=== PATIENT | male | born 1950 | race Caucasian/White ===

== ENCOUNTER 2022-06-24 10:15 | Outpatient (REF) | payer BC, SELFPAY ==
--- NOTE | ~2022-06-24 | MR_ITS ---
EXAMINATION: MR BRAIN WITHOUT AND WITH CONTRAST CLINICAL INFORMATION: Right-sided facial spasms. COMPARISON: None available. TECHNIQUE: Multiplanar, multisequence MRI of the brain was obtained using a skull base protocol without and following the administration of 7 mL of Gadavist intravenous contrast. FINDINGS: No focal restricted diffusion is demonstrated to suggest acute or subacute cerebral ischemia. No evidence of acute or chronic hemorrhagic products on heme-sensitive imaging. Scattered periventricular, deep white matter, and brainstem T2 FLAIR hyperintensities consistent with moderate underlying microangiopathy. Proportional prominence of the ventricles and sulcal spaces without evidence of obstructive hydrocephalus. No abnormal mass effect. No midline shift. Normal appearance of the pituitary gland. Normal positioning of the cerebellar tonsils. No mass of the cerebellopontine angles. Normal appearance of the cranial nerve V, VII, and VIII nerve roots. No edema or vascular loops near the nerve root entry sites. Normal appearance of the internal auditory canals without enhancing mass lesions. No abnormal enhancement along the course of the facial nerves bilaterally. Normal appearance of the labyrinthine structures without loss of T2 signal or abnormal enhancement. Normal arterial and venous vascular flow voids are present. No abnormal intracranial contrast enhancement. Normal, homogeneous marrow signal. Mild mucosal thickening of the paranasal sinuses. No signal abnormalities within the mastoids. MR/MR head/brain wo/w con IMPRESSION: 1. No acute intracranial abnormalities. No abnormal intracranial enhancement. 2. Moderate underlying microangiopathy and generalized cerebral volume loss. 3. No additional MRI abnormalities to explain the patient's symptoms.
== END 2022-06-24 10:16 | disposition home or self-care (01) ==
LOC: HO.MRI 10:15
PROVIDERS: PCP Internal Medicine; Visit Provider Psychiatry & Neurology Neurology
DX: G51.39 Clonic hemifacial spasm, unspecified (principal)
CPT/HCPCS: 70553; A9585

== ENCOUNTER 2025-06-16 09:41 | Outpatient (AMB) | payer BC, SELFPAY ==
--- NOTE | 2025-06-16 09:49 | A.OFFVIS_ITS ---
Intake Visit Reasons: 6 mnts f/u Allergies carbamazepine Allergy (Unknown, Verified 06/16/25 09:54) Unknown Medication List - Last Reconciled 06/16/25 by Mirella Grace CNP cyclobenzaprine 10 mg PO TID escitalopram oxalate 20 mg PO BEDTIME gabapentin 300 mg PO TID lorazepam 1 mg PO DAILY PRN losartan 50 mg PO BEDTIME melatonin 10 mg PO BEDTIME PRN testosterone 4 pumps topical DAILY HPI Comments Details: He was having some lower back pain with pain going down right leg for about 6 weeks. He went to [facility] walk-in clinic and had MRI done at [facility] Monday evening (06/14/2025), unsure of results and report not available at this time. He was prescribed prednisone x10 days which he completed without significant improvement, and cyclobenzaprine 10mg TID as needed which does not help much. 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 He was having more numbness, tingling, and burning-type pain to feet over the last few months. It bothered him during the day and at night, and occasionally disrupted sleep. No falls. Facial twitching comes and goes, worse when nervous or anxious. He first developed intermittent right facial twitching around 2011 which would occur off and on, worse when he was anxious and nervous. It started to get progressively worse around 2017, going on continuously while awake and worse if he tried to control it. 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 It is known to involve the entire right side of the face and the right platysma in the neck. There is no pain. The more he tries to suppress it, the worse it gets. Numbness and tingling in toes of both feet and slight burning sensation began around 2020. [facility], [facility] Medical History (Updated 06/16/25 @ 10:02 by Mirella Grace CNP) Hypertension Peripheral neuropathy Anxiety Physical Exam Const Other: General Appearance:? normal, in no acute distress. Heart:? S1, S2 normal, no murmurs. Lungs:? clear anteriorly and posteriorly. Musculoskeletal:? normal. Extremities:? no edema. Psych:? alert, oriented, cognitive function intact, cooperative with exam. Neuro Other: Abnormal Neurological Findings:?Intermittent right hemifacial spasms involving mostly the right lower face periorbital muscles and the right neck platysma. Improved when distracted?with eye movement and eye tracking. There is slight contracture and asymmetry of the face with a more prominent nasolabial fold on the right. Distal blunting of pinprick sensation in the toes. Mental Status: alert and oriented X 3. Normal attention, orientation, memory, and affect. Cranial Nerves: Pupils are equal, round, and reactive to light. External ocular muscles are intact. Visual renae are full, no ptosis. There is slight contracture and asymmetry of the face with a more prominent nasolabial fold on the right. Facial sensations are normal. Tongue protrudes in midline. Palate elevates symmetrically. Shoulder shrugging is normal Motor Examination: Normal muscle tone, bulk and strength. No atrophy or fasciculations. No drift of the extended upper extremities. DTR 2+. Plantars are flexor. Sensory Exam: As above, otherwise normal light touch, temperature, pinprick, vibration, and joint-position sensations. Rhomberg sign is absent. Coordination: No ataxia. No titubation. Gait Exam: Within normal limits. Cerebellar Signs: [id number] is okay. Extrapyramidal System: No tremor, rigidity with normal facial expressions. No bradykinesia. No bradyphrenia. Normal arm swing and posture. No propulsion or retropulsion. Speech: Normal. Results Reviewed Results Reviewed: 06/28/22 NCV/EMG LE Mild sensory and motor peripheral neuropathy in the lower extremities. EMG of the left L4-S1 innervated muscles is consistent with neuropathic changes. 06/24/22 MRI Moderate underlying microangiopathy and generalized cerebral volume loss. 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 Gabapentin dose increased to help with increased neuropathy symptoms. (2) Peripheral neuropathy: Code(s): G62.9 - Polyneuropathy, unspecified Category: Medical Qualifiers: Peripheral neuropathy type: polyneuropathy, unspecified Qualified Code(s): G62.9 - Polyneuropathy, unspecified Plan: Increase gabapentin 300mg 1 capsule in the morning, 1 capsule midday, 2 capsules at bedtime x1 week, then 1 capsule in the morning, 2 capsules midday, 2 capsules at bedtime, then 2 capsules three times a day. (3) Lumbar radiculopathy: Code(s): M54.16 - Radiculopathy, lumbar region Category: Medical Plan: Prednisone taper ordered, use/side effects reviewed. Will request copy of MRI results from [facility]. (4) Cerebral microvascular disease: Code(s): I67.89 - Other cerebrovascular disease Category: Medical Plan: Control blood pressure. 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
--- OUTSIDE RECORDS SUMMARY | 2025-06-16 10:31 | XMS_ITS | Encounter Summary ---
Author Organization [facility] Address [address] [place] [address] Care Team Providers Care Liner Roll Changer Name Role Phone Physician, Pcp Unknown Primary Care Provider Adalgisa vailable Encounter Details Date Type Department Care Team (Late st Contact Info) Description 02/18/2025 Lab Requisition [facility] - Main Lab [address] [facility] [place] [address] Ab Guzman PA [address] [facility] [address] [place] [address] Essential (primary) hypertension; Encounter for general adult medical examination with abnormal findings; Testicular hypofunction Social History Tobacco Use Types Packs/Day Years Used Date Smoking Tobacco: Never Assessed Sex and Gender Information Value Date Recorded Sex Assigned at Not on file Legal Sex Male 8:10 PM EST Gender Identity Not on file Sexual Orientation Not on file documented as of this encounter Plan of Treatment Not on file documented as of this encounter Visit Diagnoses Diagnosis Essential (primary) hypertension Unspecified essential hypertension Encounter for general adult medical examination with abnormal findings Testicular hypofunction Other testicular hypofunction documented in this encounter Care Teams Liner Roll Changer Relationship Specialty Start Date End Date Physician, Pcp Unknown PCP - General 02/18/25 documented as of this encounter
== END 2025-06-16 10:11 | disposition home or self-care (01) ==
LOC: HO.HSM 09:41
PROVIDERS: PCP Internal Medicine; Visit Provider Registered Nurse
DX: G51.31 Clonic hemifacial spasm, right (principal); G62.9 Polyneuropathy, unspecified; M54.16 Radiculopathy, lumbar region; I67.89 Other cerebrovascular disease
CPT/HCPCS: 99214